=== PATIENT | female | born 1990 | race Caucasian/White ===

== ENCOUNTER 2018-04-03 22:58 | Emergency (ER) | payer OTHER ==
[2018-04-03 23:09] VITALS: BP 128/81; TEMP 98.1; BMI 26.1
--- NOTE | 2018-04-04 01:48 | PDOC ---
History of Present Illness <Bhumika Peck - Last Filed: 04/04/18 01:55> - General History Source: Patient Exam Limitations: No Limitations - History of Present Illness Initial Comments: 04/04/18 03:37 The patient is a 27 year old female with a significant PMH of gastro sleeve ( June 2017)who presents to the emergency department with chest pain since earlier today. The patient reports that she was out to dinner earlier today when she began to experience chest pain after eating. The patient states that she ate her dinner then began to feel an onset of chest pain as well as experienced some hives and tingling sensation in her hands. The patient states that she also began to feel as if she was going to pass out about 20 minutes after her symptoms. The patient denies any other symptoms. She denies any fever , chills, nausea, vomit, diarrhea, constipation or urinary symptoms. She denies any shortness of breath, headache and dizziness. The patient denies any other complaints. <Gavi Valle - Last Filed: 04/04/18 03:42> - General Chief Complaint: Chest Pain Stated Complaint: CHEST PAIN Time Seen by Provider: 04/04/18 01:48 Past History - Past Medical History Cancer: No Cardiac Disorders: No CVA: No COPD: No DVT: No Dementia: No - Surgical History GI Surgery: Yes (gastric sleeve Jun 2017) - Suicide/Smoking/Psychosocial Hx Smoking Status: No Smoking History: Never smoked Years of Tobacco Use: 0 Number of Cigarettes Smoked Daily: 0 Information on smoking cessation initiated: No Hx Alcohol Use: No Drug/Substance Use Hx: No Substance Use Type: None <Bhumika Peck - Last Filed: 04/04/18 01:55> <Gavi Valle - Last Filed: 04/04/18 03:42> - Past Medical History Allergies/Adverse Reactions: Allergies Allergy/AdvReac Type Severity Reaction Status Date / Time shellfish derived Allergy Severe Hives Verified 04/04/18 02:02 No Known Drug Allergies Allergy Verified 04/04/18 02:03 Home Medications: Ambulatory Orders No Home Medications 1 ea [facility] ONCE 02/20/12 Diphenhydramine HCl [Benadryl -] 25 mg PO Q8H #21 capsule 04/04/18 Ranitidine [Zantac -] 300 mg PO HS #14 tablet 04/04/18 Review of Systems - Review of Systems Able to Perform ROS?: Yes Comments:: 04/04/18 03:42 GENERAL/CONSTITUTIONAL: No fever or chills. No weakness. HEAD, EYES, EARS, NOSE AND THROAT: No change in vision. No ear pain or discharge. No sore throat. CARDIOVASCULAR:(+)chest pain. No shortness of breath. RESPIRATORY: No cough, wheezing, or hemoptysis. GASTROINTESTINAL: (+)vomiting. No nausea, diarrhea or constipation. GENITOURINARY: No dysuria, frequency, or change in urination. MUSCULOSKELETAL: No joint or muscle swelling or pain. No neck or back pain. SKIN:(-)hives. No rash NEUROLOGIC:(+)hand tingling. No headache, vertigo, loss of consciousness, or change in strength. ENDOCRINE: No increased thirst. No abnormal weight change. HEMATOLOGIC/LYMPHATIC: No anemia, easy bleeding, or history of blood clots. ALLERGIC/IMMUNOLOGIC: No hives or skin allergy. <Gavi Valle - Last Filed: 04/04/18 03:42> *Physical Exam - Vital Signs Last Vital Signs Temp Pulse Resp BP Pulse Ox 98.1 F 90 20 128/81 100 04/03/18 23:02 04/03/18 23:02 04/03/18 23:02 04/03/18 23:02 04/03/18 23:02 <Bhumika Peck - Last Filed: 04/04/18 01:55> - Vital Signs Last Vital Signs Temp Pulse Resp BP Pulse Ox 98.1 F 85 20 128/81 100 04/03/18 23:02 04/04/18 02:05 04/03/18 23:02 04/03/18 23:02 04/04/18 02:05 - Physical Exam Comments: 04/04/18 03:42 GENERAL: Awake, alert, and fully oriented, in no acute distress HEAD: No signs of trauma EYES: PERRLA, EOMI, sclera anicteric, conjunctiva clear ENT: Auricles normal inspection, hearing grossly normal, nares patent, oropharynx clear without exudates. Moist mucosa NECK: Normal ROM, supple, no lymphadenopathy, JVD, or masses LUNGS: Breath sounds equal, clear to auscultation bilaterally. No wheezes, and no crackles HEART: Regular rate and rhythm, normal S1 and S2, no murmurs, rubs or gallops ABDOMEN: Soft, nontender, normoactive bowel sounds. No guarding, no rebound. No masses EXTREMITIES: Normal range of motion, no edema. No clubbing or cyanosis. No cords, erythema, or tenderness NEUROLOGICAL: Cranial nerves II through XII grossly intact. Normal speech, normal gait SKIN:(+) rash on right neck . Warm, Dry, normal turgor, no lesions noted. <Gavi Valle - Last Filed: 04/04/18 03:42> ED Treatment Course - ADDITIONAL ORDERS Additional order review: Laboratory Results 04/04/18 01:46 Urine HCG, Qual Negative - Medications Given in the ED: ED Medications Discontinued Medications Generic Name Dose Route Start Last Admin Trade Name Mihaiq PRN Reason Stop Dose Admin Dexamethasone 10 mg 04/04/18 02:00 04/04/18 02:07 Decadron - PO 04/04/18 02:01 10 mg NOW ONE Administration Diphenhydramine HCl 50 mg 04/04/18 01:53 04/04/18 02:07 Benadryl - PO 04/04/18 01:54 50 mg ONCE ONE Administration Ranitidine HCl 300 mg 04/04/18 01:53 04/04/18 02:07 Zantac - PO 04/04/18 01:54 300 mg ONCE ONE Administration <Gavi Valle - Last Filed: 04/04/18 03:42> *DC/Admit/Observation/Transfer - Discharge Dispostion Decision to Admit order: No <Bhumika Peck - Last Filed: 04/04/18 01:55> - Attestations Scribe Attestion: 04/04/18 03:42 Documentation prepared by Gavi Valle, acting as administrative medical director for Bhumika Peck MD. <Gavi Valle - Last Filed: 04/04/18 03:42> Diagnosis at time of Disposition: Allergic reaction - Discharge Dispostion Disposition: HOME Condition at time of disposition: Stable - Prescriptions Prescriptions: Diphenhydramine HCl [Benadryl -] 25 mg PO Q8H #21 capsule Ranitidine [Zantac -] 300 mg PO HS #14 tablet - Referrals Referrals: Elyssa Loomis [Primary Care Provider] - Jean Ramos MD [Staff Physician] - - Patient Instructions Printed Discharge Instructions: Food Allergy, DI for General Allergic Reactions - Post Discharge Activity
[2018-04-04] MEDS ORDERED: DEXAMETHASONE SOD PHOSPHATE 10 MG/1 ML VIAL ONE (01:53)
[2018-04-04] MEDS ORDERED: diphenhydrAMINE HCL 25 MG CAPSULE (FP) PO ONE ×2 (01:53)
[2018-04-04] MEDS ORDERED: RANITIDINE HCL 150 MG TABLET (FP) ONE (01:53)
[2018-04-04] MEDS ORDERED: RANITIDINE HCL 150 MG TABLET (FP) PO ONE (01:53)
[2018-04-04] MEDS ORDERED: DEXAMETHASONE 4 MG TABLET (FP) PO ONE (02:00)
[2018-04-04 02:07] VITALS: PULSE 85
--- NOTE | 2018-04-05 08:54 | EKG ---
Test Reason : Blood Pressure : / mmHG Vent. Rate : 085 BPM Atrial Rate : 085 BPM P-R Int : 146 ms QRS Dur : 076 ms QT Int : 368 ms P-R-T Axes : 040 005 042 degrees QTc Int : 437 ms NORMAL SINUS RHYTHM WITH SINUS ARRHYTHMIA NORMAL ECG NO PREVIOUS ECGS AVAILABLE Confirmed by PABLO ABDALLA MD ([id number]) on 04/05/2018 8:53:48 AM Referred By: Confirmed By:PABLO ABDALLA MD
== END 2018-04-04 03:12 | disposition home or self-care (01) ==
LOC: JER 22:58
DX: T78.40XA Allergy, unspecified, initial encounter (principal); X58.XXXA Exposure to other specified factors, initial encounter; Z98.84 Bariatric surgery status
CPT/HCPCS: 84703; 93005; 93010; 99283-25